=== PATIENT | female | born 1975 | race Caucasian/White ===

== ENCOUNTER 2021-10-06 11:34 | Emergency (ER) | payer SELFPAY ==
[~2021-10-06] VITALS: Ht 154.9 cm; Wt 86.3 kg
[2021-10-06] MEDS ORDERED: IV NORMAL SALINE 1,000ML 1,000 ML IV ONE (13:00)
[2021-10-06] MEDS ORDERED: ONDANSETRON PF 4 MG/2 ML VIAL. IVP ONE (13:15)
[2021-10-06] MEDS ORDERED: IOHEXOL 350 MG/ML 100 ML VIAL. IV ONE (13:15)
--- NOTE | 2021-10-06 13:18 | EKG ---
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
[2021-10-06 13:57] LABS: BASO % 0 % (0-3); EOS # 0.1 x10^3/uL (0.0-0.7); EOS % 1 % (0-3); HEMATOCRIT 45.5 % (36.0-47.0); HEMOGLOBIN 15.7 g/dL (12.0-15.5); LYMPH # 3.5 x10^3/uL (1.0-4.8); LYMPH % 35 % (24-48); MEAN CORPUSCULAR HEMOGLOBIN 33 pg (25-35); MEAN CORPUSCULAR HGB CONC 34 g/dL (31-37); MEAN CORPUSCULAR VOLUME 95 fL (79-100); MONO # 0.5 x10^3/uL (0.0-1.1); MONO % 5 % (0-9); NEUT # 5.9 x10^3uL (1.8-7.7); NEUT % 59 % (31-73); PLATELET COUNT 271 x10^3/uL (140-400); RED BLOOD COUNT 4.79 x10^6/uL (3.50-5.40); RED CELL DISTRIBUTION WIDTH 13.7 % (11.5-14.5)
[2021-10-06 14:24] LABS: BACTERIA,URINE FEW /HPF (0-FEW); BILIRUBIN,URINE NEG (NEG); CLARITY,URINE HAZY; COLOR,URINE YELLOW; GLUCOSE,URINE NEG (NEG); NITRITE,URINE POS (NEG); SQUAMOUS EPITHELIAL CELL,UR MANY /LPF; UROBILINOGEN,URINE 0.2 mg/dL (0.2 mg/dL)
--- NOTE | 2021-10-06 14:26 | RAD ---
Exam Date: 10/06/2021 1:20 PM CTA HEAD AND NECK W/WO CONTRAST, CT HEAD/BRAIN WO Indication: Reason: Dizziness, feels drunk, near syncope, diaphoresis, OMNI 350, 75ml / Spl. Instruct ions: / History: . TECHNIQUE: Head CT was performed without intravenous contrast. One or more of the following dose re duction techniques were utilized: *Automated exposure control (AEC) *Adjustment of mA and/or kV according to patient size *Use of iterative reconstruction technique *CT scan done according to ALARA, or ALARA/IMAGE GENTLY FINDINGS: The ventricles and sulci are normal for the patient's stated age. There is no evidence of acute int racranial hemorrhage, extra-axial collection, mass effect, midline shift, or acute territorial infarc t. No lesion of the skull base or the calvarium is seen. The visualized paranasal sinuses, mastoid ai r cells and orbits are normal in appearance. IMPRESSION: No evidence for acute intracranial abnormality. Exam Date: 10/06/2021 1:20 PM CTA HEAD AND NECK W/WO CONTRAST, CT HEAD/BRAIN WO Indication: Reason: Dizziness, feels drunk, near syncope, diaphoresis, OMNI 350, 75ml / Spl. Instruct ions: / History: . TECHNIQUE: CT angiogram of the head was performed before and following the administration of nonionic intravenous contrast. Three-dimensional maximal intensity projection reformatted images and source i mages were created on an independent workstation and reviewed to assist with clinical management. O ne or more of the following dose reduction techniques were utilized: *Automated exposure control (AEC) *Adjustment of mA and/or kV according to patient size *Use of iterative reconstruction technique *CT scan done according to ALARA, or ALARA/IMAGE GENTLY FINDINGS: The right P1 segment appears hypoplastic which can be a normal variant. The right P2 segment is craft nt and supplied by the posterior communicating artery. The right vertebral artery is dominant. The left vertebral artery tapers significantly and appears s everely stenotic distally, likely chronic. The distal right vertebral, basilar, distal internal carotid, and proximal anterior/posterior/middle cerebral arteries are otherwise patent. No occlusive lesion, aneurysm, or arteriovenous malformation identified. The ventricles and sulci are normal for the patient's stated age. There is no evidence of acute int racranial hemorrhage, extra-axial collection, mass effect, midline shift, or acute territorial infarc t. No lesion of the skull base or the calvarium is seen. The visualized paranasal sinuses, mastoid ai r cells and orbits are normal in appearance. IMPRESSION: Right P1 segment appears hypoplastic, which can be a normal variant. Distal left vertebral artery tapers significantly and appears severely stenotic distally, likely senior controls technician nava. No evidence of large vessel occlusion. No evidence for acute intracranial abnormality. Exam Date: 10/06/2021 1:20 PM CTA HEAD AND NECK W/WO CONTRAST, CT HEAD/BRAIN WO Indication: Reason: Dizziness, feels drunk, near syncope, diaphoresis, OMNI 350, 75ml / Spl. Instruct ions: / History: Technique: CT angiogram of the neck was performed before and following the administration of nonionic intravenous contrast. Three-dimensional maximum intensity projection reformatted images were creat ed on an independent workstation and reviewed along with source images to assist with clinical manage ment. One or more of the following dose reduction techniques were utilized: *Automated exposure control (AEC) *Adjustment of mA and/or kV according to patient size *Use of iterative reconstruction technique *CT scan done according to ALARA, or ALARA/IMAGE GENTLY Findings: There is a right-sided aortic arch. The left internal carotid and left subclavian arteries arise fro m a common trunk which is the first branch of the aortic arch. The right internal carotid and right subclavian arteries arise independently from the aortic arch. The right vertebral artery is dominant. Vertebral arteries in the neck are otherwise patent. Examination of the aortic arch demonstrates normal origins of the right brachiocephalic, left common carotid and left subclavian arteries. The origin of the right common carotid artery is normal. The co mmon carotid, internal carotid, and external carotid arteries, as well as the carotid bifurcations, a re normal bilaterally. The vertebral arteries are normal bilaterally. No evidence of focal stenosis, aneurysmal dilatation, or dissection in the visualized arteries of the neck. Impression: No evidence of large vessel occlusion. Note: Stenosis was evaluated using NASCET criteria. Electronically signed by: Fox Lorenzo MD (10/06/2021 2:24 PM) [facility]
--- NOTE | 2021-10-06 14:28 | RAD ---
EXAM: Chest, single view. HISTORY: Near syncope. COMPARISON: None. FINDINGS: A frontal view of the chest is obtained. There is no infiltrate, pleural effusion or pneumo thorax. The heart is normal in size. IMPRESSION: No acute pulmonary finding. Electronically signed by: Rabia Ball MD (10/06/2021 2:26 PM) [id number]
[2021-10-06 14:58] LABS: CALCIUM 9.5 mg/dL (8.5-10.1); CREATININE 0.7 mg/dL (0.6-1.0); GFR 89.7; POTASSIUM 4.2 mmol/L (3.5-5.1)
[2021-10-06 15:02] LABS: C REACTIVE PROTEIN 9.3 mg/L (0-3.3)
[2021-10-06 15:09] LABS: ALBUMIN 4.6 g/dL (3.4-5.0); ALBUMIN/GLOBULIN RATIO 1.4 (1.0-1.7); TOTAL BILIRUBIN 0.5 mg/dL (0.2-1.0)
[2021-10-06] MEDS ORDERED: CONTRAST GIVEN. MC PRN (15:45)
[2021-10-06] MEDS ORDERED: IV NORMAL SALINE 50ML 50 ML ONE (15:45)
[2021-10-06] MEDS ORDERED: cefTRIAXone SODIUM 1 GM VIAL ONE (15:45)
[2021-10-06] MEDS ORDERED: KETOROLAC 30 MG/ML VIAL. IVP ONE (16:00)
--- NOTE | 2021-10-06 17:07 | PHYS DOC ---
Past History Past Surgical History: Cholecystectomy, , Hysterectomy (JUAN RAMON BRAGG APRN) Alcohol Use: None (JUAN RAMON BRAGG APRN) Adult General Chief Complaint Chief Complaint: MULTIPLE COMPLAINTS HPI HPI Patient is a 45-year-old female who presents to the emergency department with chief complaint of waking up feeling drunk and dizzy, states she had to hold onto the leon to make it to the bathroom. Patient reports she had hot flashes with nausea and had to sit down for approximately 30 to 40 minutes. Patient reports she felt much better and went back into her bedroom to get dressed but stated she had to lay down on the bed just to dress self. Patient described her dizziness as objects seem to be moving however not spinning around. Patient did not vomit. 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 Patient reported while she was working she had feeling that she was going to pass out, became diaphoretic, noted that her right bicep and right thigh started to hurt at approximately 1030 this morning. However patient reports these pains have been coming on and off for the past 2 weeks. Patient denied any chest pains, shortness of breath, cough, congestion, fever or chills. Patient denied any abdominal pains, seeing blood in her urine or in her stool. Denied increased urination or increased thirst. Denied increased urinary frequency, urinary pressure, burning with urination, or other dysuria. Patient denies other physical complaints or physical concerns. (JUAN RAMON BRAGG APRN) Review of Systems Review of Systems 14 body systems of review of systems have been reviewed. See HPI for pertinent positives and negative responses, otherwise all other systems are negative, nonpertinent or noncontributory. Constitutional: Negative except as outlined in HPI above. Skin: Negative except as outlined in HPI above. Eyes: Negative except as outlined in HPI above. HENT: Negative except as outlined in HPI above. Respiratory: Negative except as outlined in HPI above. Cardiovascular: Negative except as outlined in HPI above. GI: Negative except as outlined in HPI above. : Negative except as outlined in HPI above. Musculoskeletal: Negative except as outlined in HPI above. Integument: Negative except as outlined in HPI above. Neurologic: Negative except as outlined in HPI above. Endocrine: Negative except as outlined in HPI above. Lymphatic: Negative except as outlined in HPI above. Psychiatric: Negative except as outlined in HPI above. (JUAN RAMON BRAGG APRN) Current Medications Current Medications Current Medications Medications (Trade) Dose Ordered Sig/Fuad Start Time Stop Time Status Last Admin Dose Admin Ceftriaxone Sodium 1 gm/ Sodium Chloride 50 ml @ 100 mls/hr 1X ONCE 10/06/21 15:45 10/06/21 16:14 DC 10/06/21 15:51 100 MLS/HR Ceftriaxone Sodium (Rocephin) 1 gm STK-MED ONCE 10/06/21 15:45 10/06/21 15:46 DC Fentanyl Citrate (Fentanyl 2ml Vial) 50 mcg 1X ONCE 10/06/21 13:00 10/06/21 13:37 DC 10/06/21 13:30 50 MCG Info (Do NOT chart on this entry -- for MONITORING) 1 each PRN DAILY PRN 10/06/21 15:45 10/08/21 15:44 Iohexol (Omnipaque 350 Mg/ml) 100 ml 1X ONCE 10/06/21 13:15 10/06/21 13:37 DC 10/06/21 13:50 75 ML Ketorolac Tromethamine (Toradol 30mg Vial) 30 mg 1X ONCE 10/06/21 16:00 10/06/21 16:01 DC 10/06/21 15:50 30 MG Ondansetron HCl (Zofran) 4 mg 1X ONCE 10/06/21 13:15 10/06/21 13:37 DC 10/06/21 14:09 4 MG Sodium Chloride 50 ml @ As Directed STK-MED ONCE 10/06/21 15:45 10/06/21 15:46 DC (JUAN RAMON BRAGG APRN) Allergies Allergies Allergies Coded Allergies Type Severity Reaction Last Updated Verified Penicillins Allergy Unknown 10/06/21 Yes acetaminophen Allergy Unknown 10/06/21 Yes oxycodone Allergy Unknown 10/06/21 Yes (JUAN RAMON BRAGG APRN) Physical Exam Physical Exam Constitutional: Well developed, well nourished, no acute distress, non-toxic appearance. 45-year-old female in no apparent distress. HENT: Normocephalic, atraumatic. Oropharynx moist, pink, no deep tissue pressu re process appreciated, bilateral TMs within normal limits, no lymphadenopathy of the head and neck appreciated. Eyes: Conjunctiva normal, no discharge. Neck: Normal range of motion, no stridor. Cardiovascular: No cyanosis appreciated, distal cap refill less than 2 seconds. Heart sounds S1-S2 to auscultation. Lungs & Thorax: Patient is in no respiratory distress, no audible adventitious lung sounds appreciated. Lung sounds clear to auscultation all lung marie. Abdomen: Nontender, no abnormalities noted. Skin: Warm, dry, no erythema, no rash. Back: No deformities appreciated, no left-sided or right-sided CVA tenderness appreciated. Right-sided lumbar pain to palpation that radiates to buttocks and anterior thigh. Extremities: No tenderness, no cyanosis, no clubbing, ROM intact, no edema. Distal cap refill less than 2 seconds, 2+ dorsalis pedis pulses, there is no pedal or ankle edema or lower extremity edema appreciated. Skin temperature warm equal both sides. Neurologic: Alert and oriented X 3, normal motor function, normal sensory function, no focal deficits noted. Steady gait and balance, no pronator shift, satisfactory [id number] test, rapid alternating actions and [id number] test. Psychologic: Affect normal, judgement normal, mood normal. (JUAN RAMON BRAGG APRN) Current Patient Data Vital Signs Vital Signs Date Time Temp Pulse Resp B/P (MAP) Pulse Ox O2 Delivery O2 Flow Rate FiO2 10/06/21 15:48 70 16 133/68 (89) 98 Room Air 10/06/21 12:12 98.1 Lab Results Laboratory Tests Test 10/06/21 13:35 10/06/21 13:37 10/06/21 13:39 10/06/21 14:31 Glucose (Fingerstick) 102 mg/dL Urine Collection Type Unknown Urine Color Yellow Urine Clarity Hazy Urine pH 7.0 Urine Specific [place] 1.020 Urine Protein Neg Urine Glucose (UA) Neg mg/dL Urine Ketones (Stick) Neg mg/dL Urine Blood Small Urine Nitrite Pos Urine Bilirubin Neg Urine Urobilinogen Dipstick 0.2 mg/dL Urine Leukocyte Esterase Neg Urine RBC 11-20 /HPF Urine WBC 1-4 /HPF Urine Squamous Epithelial Cells Many /LPF Urine Bacteria Few /HPF Urine Mucus Slight /LPF White Blood Count 10.0 x10^3/uL Red Blood Count 4.79 x10^6/uL Hemoglobin 15.7 g/dL Hematocrit 45.5 % Mean Corpuscular Volume 95 fL Mean Corpuscular Hemoglobin 33 pg Mean Corpuscular Hemoglobin Concent 34 g/dL Red Cell Distribution Width 13.7 % Platelet Count 271 x10^3/uL Neutrophils (%) (Auto) 59 % Lymphocytes (%) (Auto) 35 % Monocytes (%) (Auto) 5 % Eosinophils (%) (Auto) 1 % Basophils (%) (Auto) 0 % Neutrophils # (Auto) 5.9 x10^3uL Lymphocytes # (Auto) 3.5 x10^3/uL Monocytes # (Auto) 0.5 x10^3/uL Eosinophils # (Auto) 0.1 x10^3/uL Basophils # (Auto) 0.0 x10^3/uL Sodium Level 140 mmol/L Potassium Level 4.2 mmol/L Chloride Level 103 mmol/L Carbon Dioxide Level 25 mmol/L Anion Gap 12 Blood Urea Nitrogen 11 mg/dL Creatinine 0.7 mg/dL Estimated GFR (Cockcroft-Gault) 89.7 BUN/Creatinine Ratio 16 Glucose Level 94 mg/dL Calcium Level 9.5 mg/dL Total Bilirubin 0.5 mg/dL Aspartate Amino Transf (AST/SGOT) 18 U/L Alanine Aminotransferase (ALT/SGPT) 29 U/L Alkaline Phosphatase 117 U/L Troponin I High Sensitivity 7 ng/L Total Protein 8.0 g/dL Albumin 4.6 g/dL Albumin/Globulin Ratio 1.4 Erythrocyte Sedimentation Rate 12 Creatine Kinase 144 U/L C-Reactive Protein 9.3 mg/L Current Medications Medications (Trade) Dose Ordered Sig/Fuad Route PRN Reason Start Time Stop Time Status Last Admin Dose Admin Sodium Chloride 1,000 ml @ 1,000 mls/hr 1X ONCE IV 10/06/21 13:00 10/06/21 13:59 DC 10/06/21 13:29 1,000 MLS/HR Fentanyl Citrate (Fentanyl 2ml Vial) 50 mcg 1X ONCE IVP 10/06/21 13:00 10/06/21 13:37 DC 10/06/21 13:30 50 MCG Ondansetron HCl (Zofran) 4 mg 1X ONCE IVP 10/06/21 13:15 10/06/21 13:37 DC 10/06/21 14:09 4 MG Iohexol (Omnipaque 350 Mg/ml) 100 ml 1X ONCE IV 10/06/21 13:15 10/06/21 13:37 DC 10/06/21 13:50 75 ML Ketorolac Tromethamine (Toradol 30mg Vial) 30 mg 1X ONCE IVP 10/06/21 16:00 10/06/21 16:01 DC 10/06/21 15:50 30 MG Ceftriaxone Sodium 1 gm/ Sodium Chloride 50 ml @ 100 mls/hr 1X ONCE IV 10/06/21 15:45 10/06/21 16:14 DC 10/06/21 15:51 100 MLS/HR Info (Do NOT chart on this entry -- for MONITORING) 1 each PRN DAILY PRN MC SEE COMMENTS 10/06/21 15:45 10/08/21 15:44 Sodium Chloride 50 ml @ As Directed STK-MED ONCE .ROUTE 10/06/21 15:45 10/06/21 15:46 DC Ceftriaxone Sodium (Rocephin) 1 gm STK-MED ONCE .ROUTE 10/06/21 15:45 10/06/21 15:46 DC Laboratory Tests Test 10/06/21 13:35 10/06/21 13:37 10/06/21 13:39 10/06/21 14:31 Glucose (Fingerstick) 102 mg/dL (70-99) H Urine Collection Type Unknown Urine Color Yellow Urine Clarity Hazy Urine pH 7.0 Urine Specific [place] 1.020 Urine Protein Neg (NEG-TRACE) Urine Glucose (UA) Neg mg/dL (NEG) Urine Ketones (Stick) Neg mg/dL (NEG) Urine Blood Small (NEG) Urine Nitrite Pos (NEG) Urine Bilirubin Neg (NEG) Urine Urobilinogen Dipstick 0.2 mg/dL (0.2 mg/dL) Urine Leukocyte Esterase Neg (NEG) Urine RBC 11-20 /HPF (0-2) Urine WBC 1-4 /HPF (0-4) Urine Squamous Epithelial Cells Many /LPF Urine Bacteria Few /HPF (0-FEW) Urine Mucus Slight /LPF White Blood Count 10.0 x10^3/uL (4.0-11.0) Red Blood Count 4.79 x10^6/uL (3.50-5.40) Hemoglobin 15.7 g/dL (12.0-15.5) H Hematocrit 45.5 % (36.0-47.0) Mean Corpuscular Volume 95 fL (79-100) Mean Corpuscular Hemoglobin 33 pg (25-35) Mean Corpuscular Hemoglobin Concent 34 g/dL (31-37) Red Cell Distribution Width 13.7 % (11.5-14.5) Platelet Count 271 x10^3/uL (140-400) Neutrophils (%) (Auto) 59 % (31-73) Lymphocytes (%) (Auto) 35 % (24-48) Monocytes (%) (Auto) 5 % (0-9) Eosinophils (%) (Auto) 1 % (0-3) Basophils (%) (Auto) 0 % (0-3) Neutrophils # (Auto) 5.9 x10^3uL (1.8-7.7) Lymphocytes # (Auto) 3.5 x10^3/uL (1.0-4.8) Monocytes # (Auto) 0.5 x10^3/uL (0.0-1.1) Eosinophils # (Auto) 0.1 x10^3/uL (0.0-0.7) Basophils # (Auto) 0.0 x10^3/uL (0.0-0.2) Sodium Level 140 mmol/L (136-145) Potassium Level 4.2 mmol/L (3.5-5.1) Chloride Level 103 mmol/L (98-107) Carbon Dioxide Level 25 mmol/L (21-32) Anion Gap 12 (6-14) Blood Urea Nitrogen 11 mg/dL (7-20) Creatinine 0.7 mg/dL (0.6-1.0) Estimated GFR (Cockcroft-Gault) 89.7 BUN/Creatinine Ratio 16 (6-20) Glucose Level 94 mg/dL (70-99) Calcium Level 9.5 mg/dL (8.5-10.1) Total Bilirubin 0.5 mg/dL (0.2-1.0) Aspartate Amino Transferase (AST) 18 U/L (15-37) Alanine Aminotransferase (ALT) 29 U/L (14-59) Alkaline Phosphatase 117 U/L (46-116) H Troponin I High Sensitivity 7 ng/L (4-50) Total Protein 8.0 g/dL (6.4-8.2) Albumin 4.6 g/dL (3.4-5.0) Albumin/Globulin Ratio 1.4 (1.0-1.7) Erythrocyte Sedimentation Rate 12 (0-25) Creatine Kinase 144 U/L (26-192) C-Reactive Protein 9.3 mg/L (0-3.3) H (JUAN RAMON BRAGG APRN) EKG EKG EKG performed at 1307 by ED nursing staff shows a normal sinus rhythm without other ectopy, heart rate 75 bpm, GA interval 0.136, QTc interval 0.416, no acute STEMI, no ACS, no acute ischemia appreciated, EKG interpreted by ED attending physician Dr. Marcelo. (JUAN RAMON BRAGG APRN) Radiology/Procedures Radiology/Procedures REASON: Near syncope, diaphoresis PROCEDURE: CHEST AP ONLY EXAM: Chest, single view. HISTORY: Near syncope. COMPARISON: None. FINDINGS: A frontal view of the chest is obtained. There is no infiltrate, pleural effusion or pneumothorax. The heart is normal in size. IMPRESSION: No acute pulmonary finding. Electronically signed by: Rabia Ball MD (10/06/2021 2:26 PM) [id number] REASON: Dizziness, feels drunk, near syncope, diaphoresis PROCEDURE: CT HEAD WO CONTRAST Exam Date: 10/06/2021 1:20 PM CTA HEAD AND NECK W/WO CONTRAST, CT HEAD/BRAIN WO Indication: Reason: Dizziness, feels drunk, near syncope, diaphoresis, OMNI 350, 75ml / Spl. Instructions: / History: . TECHNIQUE: Head CT was performed without intravenous contrast. One or more of the following dose reduction techniques were utilized: *Automated exposure control (AEC) *Adjustment of mA and/or kV according to patient size *Use of iterative reconstruction technique *CT scan done according to ALARA, or ALARA/IMAGE GENTLY FINDINGS: The ventricles and sulci are normal for the patient's stated age. There is no evidence of acute intracranial hemorrhage, extra-axial collection, mass effect, midline shift, or acute territorial infarct. No lesion of the skull base or the calvarium is seen. The visualized paranasal sinuses, mastoid air cells and orbits are normal in appearance. IMPRESSION: No evidence for acute intracranial abnormality. Exam Date: 10/06/2021 1:20 PM CTA HEAD AND NECK W/WO CONTRAST, CT HEAD/BRAIN WO Indication: Reason: Dizziness, feels drunk, near syncope, diaphoresis, OMNI 350, 75ml / Spl. Instructions: / History: . TECHNIQUE: CT angiogram of the head was performed before and following the administration of nonionic intravenous contrast. Three-dimensional maximal intensity projection reformatted images and source images were created on an independent workstation and reviewed to assist with clinical management. One or more of the following dose reduction techniques were utilized: *Automated exposure control (AEC) *Adjustment of mA and/or kV according to patient size *Use of iterative reconstruction technique *CT scan done according to ALARA, or ALARA/IMAGE GENTLY FINDINGS: The right P1 segment appears hypoplastic which can be a normal variant. The right P2 segment is patent and supplied by the posterior communicating artery. The right vertebral artery is dominant. The left vertebral artery tapers significantly and appears severely stenotic distally, likely chronic. The distal right vertebral, basilar, distal internal carotid, and proximal anter ior/posterior/middle cerebral arteries are otherwise patent. No occlusive lesion, aneurysm, or arteriovenous malformation identified. The ventricles and sulci are normal for the patient's stated age. There is no evidence of acute intracranial hemorrhage, extra-axial collection, mass effect, midline shift, or acute territorial infarct. No lesion of the skull base or the calvarium is seen. The visualized paranasal sinuses, mastoid air cells and orbits are normal in appearance. IMPRESSION: Right P1 segment appears hypoplastic, which can be a normal variant. Distal left vertebral artery tapers significantly and appears severely stenotic distally, likely chronic. No evidence of large vessel occlusion. No evidence for acute intracranial abnormality. Exam Date: 10/06/2021 1:20 PM CTA HEAD AND NECK W/WO CONTRAST, CT HEAD/BRAIN WO Indication: Reason: Dizziness, feels drunk, near syncope, diaphoresis, OMNI 350, 75ml / Spl. Instructions: / History: Technique: CT angiogram of the neck was performed before and following the administration of nonionic intravenous contrast. Three-dimensional maximum intensity projection reformatted images [facility] and reviewed along with source images to assist with clinical management. One or more of the following dose reduction techniques were utilized: *Automated exposure control (AEC) *Adjustment of mA and/or kV according to patient size *Use of iterative reconstruction technique *CT scan done according to ALARA, or ALARA/IMAGE GENTLY Findings: There is a right-sided aortic arch. The left internal carotid and left subclavian arteries arise from a common trunk which is the first branch of the aortic arch. The right internal carotid and right subclavian arteries arise independently from the aortic arch. The right vertebral artery is dominant. Vertebral arteries in the neck are otherwise patent. Examination of the aortic arch demonstrates normal origins of the right brachiocephalic, left common carotid and left subclavian arteries. The origin of the right common carotid artery is normal. The common carotid, internal carotid, and external carotid arteries, as well as the carotid bifurcations, are normal b ilaterally. The vertebral arteries are normal bilaterally. No evidence of focal stenosis, aneurysmal dilatation, or dissection in the visualized arteries of the neck. Impression: No evidence of large vessel occlusion. Note: Stenosis was evaluated using NASCET criteria. Electronically signed by: Fox Lorenzo MD (10/06/2021 2:24 PM) [facility] (JUAN RAMON BRAGG APRN) Heart Score C/O Chest Pain: No Risk Factors: Risk Factors: DM, Current or recent (<one month) smoker, HTN, HLP, family history of CAD, obesity. Risk Scores: Risk Factors: DM, Current or recent (<one month) smoker, HTN, HLP, family history of CAD, obesity. (JUAN RAMON BRAGG APRN) Course & Med Decision Making Course & Med Decision Making Pertinent Labs and Imaging studies reviewed. (See chart for details) 45-year-old female, vital signs reviewed, presents to the emergency department concerning drunken dizzy feeling with diaphoretic episode after waking up this morning and a return of symptoms while at work. Physical examination unremarkable for acute emergent condition, slightly suspicious for lumbago, patient's cerebellar examination nonconcerning however with patient's explanation of events we will order CT head without contrast CTA head and neck. EKG, CBC, CMP, urinalysis assay, troponin I. The patient's NIHSS stroke scale equals 0. Will give 1 L normal saline, fentanyl for pain, Zofran for nausea. Upon reevaluation of the patient, the patient reports all pain and dizziness symptoms have resolved. Patient no longer complains of right biceps or right leg pain or right low back pain. Patient's CT scans unremarkable, EKG unremarkable, serum labs unremarkable, however patient urine is infected, patient did have low back pain upon initial examination, suspicious for cystitis . Will give 1 g Rocephin IV, sent home on cefdinir. Discussed all lab findings with patient, discussed home antibiotic, side effects, will give resources for primary care provider, return to ER precautions and concerns, patient gave verbal understanding of and is amenable to ED discharge planning. Discussed with the patient all findings and diagnostic testing as well as the need to follow-up with their primary care provider for further evaluation and treatment or return to the ED if any new or worsening symptoms. Strict return precautions were also discussed at length, the patient voiced understanding and agreement with the discharge planning. The patient was nontoxic in appearance, in no apparent distress, and hemodynamically stable at the time of disposition. (JUAN RAMON BRAGG APRN) Dragon Disclaimer Dragon Disclaimer This electronic medical record was generated, in whole or in part, using a voice recognition dictation system. (JUAN RAMON BRAGG APRN) NIH Stroke Scale: NIH Stroke Scale Response (Comments) Value Level of Consciousness: 0 Alert/Responsive 0 LOC Questions: 0 Answers both correctly 0 LOC Commands: 0 Performs both tasks 0 Best Gaze: 0 Normal 0 Visual: 0 No visual loss 0 Facial Palsy: 0 Normal, symmetrical 0 Motor - Left Arm 0 No drift 0 Motor - Right Arm 0 No drift 0 Motor - Left Leg 0 No drift 0 Motor: Right Leg 0 No drift 0 Limb Ataxia: 0 Absent 0 Sensory: 0 No loss 0 Best Language: 0 Normal 0 Dysathria: 0 Normal 0 Extinction and Inattention: 0 Normal 0 Total 0 Attending Co-Sign The patient was seen and interviewed as well as examined at the bedside. The chart was reviewed. The case was discussed. Agree with the plan of care. (AMY MARCELO DO) Departure Departure: Impression: Primary Impression: Abnormal urinalysis Additional Impressions: Urinary tract infection Dizziness Right leg pain Right arm pain Disposition: 01 HOME / SELF CARE / HOMELESS Condition: GOOD Referrals: PCP,NO (PCP) Patient Instructions: Dizziness, Urinary Tract Infection Additional Instructions: You were seen today in the emergency department for dizziness, right arm and right leg pains. CT scanning of your head and neck did not reveal any concerning findings. Your EKG within normal limits. Your blood lab work was within normal limits. However your urine was infected. As we discussed you were started on an IV antibiotic in the emergency department today, and I am sending you home with a prescription for a medication to take twice a day for the next 7 days. Please take until completed. You had indicated you do not have a primary care physician, I have recommended the [facility] group located at [facility] [place] [place] [address] [place] [address], area code [phone], please call tomorrow for the earliest appointment for reevaluation. However, you may use any healthcare provider of your choice. Thank you for visiting our Emergency Department. It was a pleasure taking care of you today in the emergency department and we appreciate you trusting us with your care. If any additional problems come up don't hesitate to return to visit us. Please follow up with your primary care provider so they can plan additional care if needed and know about the problem that you had. If symptoms worsen come back to the Emergency Department. Any concerning symptoms that start such as chest pain, shortness of air, weakness or numbness on one side of the body, running high fevers or any other concerning symptoms return to the ER. EMERGENCY DEPARTMENT GENERAL DISCHARGE INSTRUCTIONS Thank you for coming to [facility] (ED) today and trusting us with you care. We trust that you had a positivie experience in our Emergency Department. If you wish to speak to the department management, you may call the director at [phone]. YOUR FOLLOW UP INSTRUCTIONS ARE FOLLOWS: 1. Do you have a private Doctor? If you do not have a private doctor, please ask for a resource list of physicians or clinics that may be able to assist you with follow up care. 2. The Emergency Physician has interpreted your x-rays. The X-Ray specialist will also review them. If there is a change in the findings, you will be notified in 48 hours when at all possible. 3. A lab test or culture has been done, your results will be reviewed and you will be notified if you need a change in treatment. ADDITIONAL INSTRUCTIONS AND INFORMATION: 1. Your care today has been supervised by a physician who is specially trained in emergency care. Many problems require more than one evaluation for a complete diagnosis and treatment. We recommend that you schedule your follow up appointment as recommended to ensure complete treatment of you illness or injury. If you are unable to obtain follow up care and continue to have a problem, or if your condition worsens, we recommend that you return to the ED. 2. We are not able to safely determine your condition over the phone nor are we able to give sound medical advice over the phone. For these safety reasons, if you call for medical advice we will ask you to come to the ED for further evaluation. 3. If you have any questions regarding these discharge instructions please call the ED at [phone]. SAFETY INFORMATION: In the interest of safety, wellness, and injury prevention; we encourage you to wear your sealbelt, if you smoke; quite smoking, and we encourage family to use a protective helmet for bicycling and other sporting events that present an increased risk for head injury. IF YOUR SYMPTOMS WORSEN OR NEW SYMPTOMS DEVELOP, OR YOU HAVE CONCERNS ABOUT YOUR CONDITION; OR IF YOUR CONDITION WORSENS WHILE YOU ARE WAITING FOR YOUR FOLLOW UP APPOINTMENT; EITHER CONTACT YOUR PRIMARY CARE DOCTOR, THE PHYSICIAN WHOSE NAME AND NUMBER YOU WERE GIVEN, OR RETURN TO THE ED IMMEDIATELY. Scripts Ibuprofen (IBUPROFEN) 600 Mg Tablet 600 MG PO Q4-6HRS PRN for PAIN, #30 TAB 0 Refills Prov: JUAN RAMON BRAGG APRN 10/06/21 Cefdinir (CEFDINIR) 300 Mg Capsule 1 CAP PO BID for UTI, #14 CAP 0 Refills Prov: JUAN RAMON BRAGG APRN 10/06/21 Problem Qualifiers Additional Impressions: Urinary tract infection Urinary tract infection type: site unspecified Hematuria presence: with hematuria Qualified Codes: N39.0 - Urinary tract infection, site not specified; R31.9 - Hematuria, unspecified JUAN RAMON BRAGG APRN Oct 06, 2021 17:07 AMY MARCELO DO Oct 07, 2021 13:32
[2021-10-06] MEDS ORDERED: IBUP600T16 PO (17:19)
[2021-10-06] MEDS ORDERED: CEFD300C PO (17:19)
[2021-10-06 17:37] VITALS: BP 125/80
== END 2021-10-06 17:41 | disposition home or self-care (01) ==
LOC: ER 11:34
DX: N39.0 Urinary tract infection, site not specified (principal); R82.998 Other abnormal findings in urine; R31.9 Hematuria, unspecified; R42 Dizziness and giddiness; M79.604 Pain in right leg; M79.601 Pain in right arm; M54.59 Other low back pain; Z90.49 Acquired absence of other specified parts of digestive tract; Z98.890 Other specified postprocedural states; Z90.710 Acquired absence of both cervix and uterus; Z88.0 Allergy status to penicillin; Z88.5 Allergy status to narcotic agent; Z88.8 Allergy status to other drugs, medicaments and biological substances
CPT/HCPCS: 36415; 70450; 70496; 70498; 71045; 80053; 81001; 82550; 82947; 84484; 85025; 85651; 86140; 87077; 87086; 93005; 96361; 96365; 96366; 96375; 99285; J0696; J1885; J2405; J3010; J7030; Q9967